=== PATIENT | female | born 1985 | race African-American/Black ===

== ENCOUNTER 2016-07-18 23:59 | Emergency (ER) | payer MEDICAID | END 2016-07-19 01:35 | disposition home or self-care (01) | LOC: D.ER 23:59 | DX: S93.402A Sprain of unspecified ligament of left ankle, initial encounter (principal); W01.0XXA Fall on same level from slipping, tripping and stumbling without subsequent striking against object, initial encounter; Y93.89 Activity, other specified; Y92.019 Unspecified place in single-family (private) house as the place of occurrence of the external cause; D57.1 Sickle-cell disease without crisis; F17.200 Nicotine dependence, unspecified, uncomplicated ==

== ENCOUNTER 2016-09-26 16:54 | Emergency (ER) | payer MEDICAID | END 2016-09-26 19:22 | disposition home or self-care (01) | LOC: D.ER 16:54 | DX: T23.011A Burn of unspecified degree of right thumb (nail), initial encounter (principal); X08.8XXA Exposure to other specified smoke, fire and flames, initial encounter; Y93.89 Activity, other specified; Y92.019 Unspecified place in single-family (private) house as the place of occurrence of the external cause; L03.011 Cellulitis of right finger; F17.200 Nicotine dependence, unspecified, uncomplicated ==